=== PATIENT | female | born 1975 | race Caucasian/White ===

== ENCOUNTER → 2016-09-01 | Outpatient (CLI) | payer OTHER ==
[2016-09-01 13:24] LABS: AUTOMATED NEUTROPHIL # 5.6 TH/MM3 (1.8-7.7); BASOPHIL % 0.5 % (0.0-2.0); EOSINOPHIL # 0.1 TH/MM3 (0-0.4); EOSINOPHIL % 0.9 % (0.0-4.0); HEMATOCRIT 41.1 % (35.0-46.0); HEMO FLAGS DIFF FINAL; LYMPH % 21.2 % (9.0-44.0); LYMPHOCYTE # 1.6 TH/MM3 (1.0-4.8); MEAN CELL VOLUME 94.3 FL (80.0-100.0); MEAN CORPUSCULAR HEMOGLOBIN 32.3 PG (27.0-34.0); MEAN CORPUSCULAR HGB CONC 34.2 % (32.0-36.0); MONO % 5.8 % (0.0-8.0); NEUT % 71.6 % (16.0-70.0); PLATELET COUNT 142 TH/MM3 (150-450); RED BLOOD COUNT 4.36 MIL/MM3 (4.00-5.30); RED CELL DISTRIBUTION WIDTH 13.5 % (11.6-17.2); WHITE BLOOD COUNT 7.8 TH/MM3 (4.0-11.0)
[2016-09-01 14:13] LABS: ALKALINE PHOSPHATASE 43 U/L (45-117); ALT (GPT) 20 U/L (10-53); ANION GAP 7 MEQ/L (5-15); AST (GOT) 15 U/L (15-37); BICARBONATE 25.7 MEQ/L (21.0-32.0); BLOOD UREA NITROGEN 11 MG/DL (7-18); CHLORIDE 106 MEQ/L (98-107); FOLLICLE STIMULATING HORMONE 7.7 mIU/mL; GLOMERULAR FILTRATION RATE 67 ML/MIN (>89); GLUCOSE,FASTING 85 MG/DL (74-99); SODIUM (NA) 139 MEQ/L (136-145); TOTAL BILIRUBIN ADULT 0.5 MG/DL (0.2-1.0)
[2016-09-04 15:51] LABS: IGA SERUM 103 mg/dL (81-463); TISSUE TRANSGLUTAMINASE AB IGG ND U/mL (())
[2016-09-04 23:51] LABS: ENDOMYSIAL AB TITER ND (<1:5); TISSUE TRANSGLUTAMINASE AB LESS THAN 1 U/mL (())
== END ==
LOC: PLAB 10:44
PROVIDERS: ATTEND Internal Medicine Gastroenterology
DX: R10.9 Unspecified abdominal pain (principal); N92.6 Irregular menstruation, unspecified
CPT/HCPCS: 36415; 80053; 82670; 82784; 83001; 83516; 84443; 85025

== ENCOUNTER → 2016-10-26 | Day surgery (SDC) | payer OTHER ==
[~2016-10-26] MED LIST: LACTATED RINGER'S 1000 ML INJ 1,000 ML ONE
--- NOTE | 2016-10-26 09:25 | GIPROC ---
[facility] [address] [facility], [address] EGD PROCEDURE REPORT EXAM DATE: 10/26/2016 PATIENT NAME: Carolyn Gutierrez MR #: [id number] BIRTHDATE: 1975 ATTENDING: Jeri Zhu MD ORDER #: [id number] WIRELESS TEAM MEMBER: STATUS: outpatient INDICATIONS: The patient is a 41 yr old female here for an EGD due to epigastric abdominal pain, bloating, and dyspepsia PROCEDURE PERFORMED: EGD w/ biopsy MEDICATIONS: None and Per Anesthesia. TOPICAL ANESTHETIC: none CONSENT: The patient understands the risks and benefits of the procedure and understands that these risks include, but are not limited to: sedation, allergic reaction, infection, perforation and/or bleeding. Alternative means of evaluation and treatment include, among others: physical exam, x-rays, and/or surgical intervention. The patient elects to proceed with this endoscopic procedure. medical equipment was checked for proper function. Hand hygiene and appropriate measures for infection prevention was taken. After the risks, benefits and alternatives of the procedure were thoroughly explained, Informed consent was verified, confirmed and timeout was successfully executed by the treatment team. The patient was anesthetized with topical anesthesia and the Pentax EG-[id number] endoscope was introduced through the mouth and advanced to the second portion of the duodenum. Retroflexed views revealed no abnormalities The gastroscope was then slowly withdrawn and removed. Irregular Z line Bx done from EG junction. Moderate to sever gastritis with nodules in the antrum Bx done from antrum. The endoscopy was otherwise normal. ADVERSE EVENTS: There were no complications. IMPRESSIONS: 1. Irregular Z line Bx done from EG junction 2. Moderate to sever gastritis with nodules in the antrum Bx done from antrum 3. Normal endoscopy otherwise 4. Retroflexed views revealed no abnormalities RECOMMENDATIONS: 1. Await biopsy results. Biopsy results will not be ready for 7-10 days. If you don't hear from us in two weeks, call our office for biopsy results. 2. Anti-reflux regimen 3. Avoid NSAIDS 4. Protonix 40mg Q AM 5. RTC in 3 wks PATIENT CONDITION: stable DISPOSITION: Home REPEAT EXAM: Return as needed for EGD Jeri Zhu MD eSigned: Jeri Zhu MD 10/26/2016 9:24 AM cc:
== END | disposition home or self-care (01) ==
LOC: ESDC 07:37
PROVIDERS: ATTEND Hospitalist
DX: R10.13 Epigastric pain (principal); R14.0 Abdominal distension (gaseous); K22.9 Disease of esophagus, unspecified; K29.70 Gastritis, unspecified, without bleeding
CPT/HCPCS: 00740; 43239; 88305; 88312; J3010; J7120

== ENCOUNTER 2016-11-22 20:32 | Emergency (ER) | payer OTHER ==
[~2016-11-22] VITALS: Ht 154.9 cm; Wt 72.0 kg
[2016-11-22 20:36] VITALS: BP 133/75; PULSE 56; RESP 18; TEMP 98.3; O2SAT 97
[2016-11-22] MEDS ORDERED: PANT40TA3 PO (20:44)
--- NOTE | 2016-11-22 21:30 | PD ---
HPI Chief Complaint: ENT Complaint Time Seen by Provider: 21:09 Travel History International Travel<30 days: No Contact w/Intl Traveler<30days: No Traveled to known affect area: No History of Present Illness HPI 41-year-old female presents to the emergency department by private transportation for complaint of 3 weeks of dizziness and feeling popping and crackling sounds in her ears. Patient states she's had no fever no chills no worst ever headache no thunderclap headache no sinus drainage no sore throat no cough no congestion no chest pain no shortness of breath no palpitations no sweats no nausea no vomiting also does not report any generalized weakness or unilateral numbness tingling or weakness or ataxia of gait. Patient states symptoms have been present for 3 weeks she is taking no medications and has not sought out any medical attention. Patient states that she 5 decided to come to the emergency room because today while at work she noticed that she would feel popping and crackling in her years and then would noted some increased dizziness and 5 decided that she needed to be evaluated. Patient had similar symptoms multiple years ago. Patient did not try any uyag-nyr-exekeke antihistamines or decongestants. Patient takes no medications on a regular basis and has no chronic medical conditions. Patient states symptoms are worsening and to start resolving. Patient also did not try any nasal spray. Patient states that he has she's been told that she has some dysfunction of her eustachian tubes. Patient has never followed up with an learning and development officer. Patient rates her ear/facial pain 5/10 in intensity. Patient does not report any history of known seasonal or environmental allergens. Patient notes that change in position does make the symptoms worse. Patient states she feels like she's on an airplane with increased ear pressure that occurs with change in altitude. [facility] Past Medical History Narrative Medical Past medical history negative; , cervical ablation; occasional alcohol use; nursing notes reviewed Medical History: Denies Significant Hx Diminished Hearing: No Tetanus Vaccination: < 5 Years Influenza Vaccination: Yes ?: Not LMP: End of October/tubal Tubal Ligation: Yes Past Surgical History Section: Yes (X's 3) Gynecologic Surgery: Yes (Ablation ) Pacemaker: No Other Surgery: Yes Social History Alcohol Use: Yes (Occ.) Tobacco Use: No Substance Use: No Allergies-Medications (Allergen,Severity, Reaction): Coded Allergies: No Known Allergies (Verified , 11/22/16) Reported Meds & Prescriptions Reported Meds & Active Scripts Active Reported Pantoprazole (Pantoprazole Sodium) 40 Mg Tab 40 Mg PO DAILY Review of Systems Except as stated in HPI: all other systems reviewed are Neg General / Constitutional: No: Fever, Chills Eyes: No: Visual changes HENT: Positive: Headaches, Lightheadedness, Earache, No: Sore Throat, Congestion, Neck Stiffness, Neck Pain, Ear Discharge Cardiovascular: No: Chest Pain or Discomfort, Palpitations, Tachycardia, Diaphoresis, Syncope, Dyspnea on exertion Respiratory: No: Cough, Shortness of Breath, Wheezing, Orthopnea, Pleuritic Pain Gastrointestinal: No: Nausea, Vomiting, Abdominal Pain Genitourinary: No: Urgency, Frequency, Dysuria, Flank Pain Musculoskeletal: No: Myalgias, Arthralgias, Pain Skin: No Rash Neurologic: Positive: Dizziness, Headache (mild frontal and maxillary sinus pressure), No: Weakness, Syncope, Focal Abnormalities, Coordination Problem, Ataxia Psychiatric: No: Anxiety Endocrine: No: Heat Intolerance Hematologic/Lymphatic: No: Easy Bruising Physical Exam Narrative GENERAL: Well-developed well-nourished female in no acute distress no respiratory distress SKIN: Warm and dry. HEAD: Atraumatic. Normocephalic. EYES: Pupils equal and round. No scleral icterus. No injection or drainage. ENT: No nasal bleeding or discharge. Mucous membranes pink and moist. Airway is patent. Tympanic membranes no redness no dullness or loss of landmarks no perforation; external auditory canals scant cerumen otherwise no retained foreign body edema or erythema. Mild sinus tenderness to percussion over the frontal and maxillary sinuses bilaterally. NECK: Trachea midline. No JVD. Supple no meningismus no nuchal rigidity. CARDIOVASCULAR: Regular rate and rhythm. RESPIRATORY: No accessory muscle use. Clear to auscultation. Breath sounds equal bilaterally. GASTROINTESTINAL: Abdomen soft, non-tender, nondistended. Hepatic and splenic margins not palpable. MUSCULOSKELETAL: Extremities without clubbing, cyanosis, or edema. No obvious deformities. NEUROLOGICAL: Awake and alert. No obvious cranial nerve deficits. Motor grossly within normal limits. Five out of 5 muscle strength in the arms and legs. Normal speech. PSYCHIATRIC: Appropriate mood and affect; insight and judgment normal. Data Data Last Documented VS Vital Signs Date Time Temp Pulse Resp B/P Pulse Ox O2 Delivery O2 Flow Rate FiO2 11/22/16 21:37 53 16 138/79 54 16 118/80 54 16 131/74 11/22/16 20:36 98.3 97 Orders Orthostatic Vital Signs (11/22/16 21:09) MDM Medical Decision Making Medical Screen Exam Complete: Yes Emergency Medical Condition: Yes Medical Record Reviewed: Yes Differential Diagnosis Rhinosinusitis, eustachian tube dysfunction, viral syndrome, dizziness, vertigo , arrhythmia, dehydration Narrative Course Patient with normal range vital signs; other setting measurements performed; patient with otherwise normal neurologic exam; reproducible tenderness to percussion of the frontal and maxillary sinuses. Suspect patient has some mild symptomatic sinusitis and/or eustachian tube dysfunction. Patient has taken no medications including attempt of izvb-nly-ledcftc use medications such as Afrin nasal decongestant spray or Flonase. Patient is recommended to use both over- the-counter medications for symptomatic relief if having ongoing symptoms will need closer evaluation through ENT. Diagnosis Primary Impression: Sinusitis Qualified Code: J32.1 - Frontal sinusitis, unspecified chronicity Additional Impression: Dehydration Referrals: Ear / Nose / Throat Specialist call for appointment table saw operator: Dr Nava Patient Instructions: General Instructions Additional Instructions: Increase fluid hydration Use Afrin nasal decongestant spray sprayed each nostril twice daily to 3-4 days avoid prolong use to avoid rebound congestion Use [id number] Flonase per package directions Rest Follow-up with ENT Return the emergency department for any concerns or change in condition Disposition: 01 DISCHARGE HOME Condition: Stable Naomy Pena MD Nov 22, 2016 21:30
[2016-11-22 21:37] VITALS: BP_SYST 118; BP_SYST 131; BP_SYST 138; BP_DIAS 74; BP_DIAS 79; BP_DIAS 80; RESP 16
== END 2016-11-22 21:50 | disposition home or self-care (01) ==
LOC: PHEFT 20:32
DX: J32.1 Chronic frontal sinusitis (principal); E86.0 Dehydration
CPT/HCPCS: 99282